=== PATIENT | male | born 1965 | race Caucasian/White ===

== ENCOUNTER 2017-10-25 13:13 | Observation (INO) ==
--- NOTE | 2017-10-25 13:20 | Emergency Department Note ---
Disposition Clinical Impression: Chest pain of uncertain etiology Disposition: Admitted As Inpatient Condition: Good Time of Disposition: 14:32 Chest Pain HPI - General Chief Complaint: ED Chest Pain Stated Complaint: chest pain Time Seen by Provider: 10/25/17 13:16 Vital Signs Reviewed: Yes Nursing Notes Reviewed: Yes - History of Present Illness HPI Narrative: Mr. Vigil, a 51yo male, presents from halfway where he was visiting family. Just prior to arrival, patient had acute onset sharp stabbing epigastric/subxyphoid pain associated with dyspnea, diaphoresis, nausea. He took his own nitro tablet x1 with complete resolution of his chest pain. He received 325 mg asa in route by EMS. Patient has prior MS with stent in 2012. These symptoms feel different in that, with his prior MS, he has left arm pain and left jaw pain. PMH: HTN, HLD, CAD s/p MS w/stent x1. Quit smoking 1 year ago; previous [id number]-[id number] history of smoking ROS: Pos: as above Neg: fever, chills, vomiting, changes in bowel or bladder, back pain. - Related Data Home Medications Medication Instructions Recorded Confirmed Aspirin Enteric Coated [Aspirin EC] 81 mg PO QAM 06/15/15 10/25/17 Atorvastatin [Lipitor] 80 mg PO QAM 06/15/15 10/25/17 Escitalopram [Lexapro] 10 mg PO QPM 06/15/15 10/25/17 Clopidogrel [Plavix] 75 mg PO DAILY 10/25/17 10/25/17 amLODIPine [Norvasc] 5 mg PO DAILY 10/25/17 10/25/17 Allergies Allergy/AdvReac Type Severity Reaction Status Date / Time Penicillins Allergy Swelling Verified 10/13/17 06:03 of Lip/Tongue/Throat cillins Allergy Severe Anaphylaxis Uncoded 10/13/17 06:03 All systems ED: reviewed and negative except as stated. Review of Systems: As Per HPI Chest Pain PMH - Past Medical History Medical history: Reports: hyperlipidemia, hypertension, kidney stones, myocardial infarction Surgical history: Reports: angioplasty/stent, orthopedic, other, other Psychiatric history: Reports: anxiety, depression - Social History Smoking Status: Former smoker Alcohol use: Reports: occasionally Drug use: Reports: none Physical Exam Vital Signs Reviewed General: Patient is alert, oriented, and in mild acute distress. He is no longer dyspneic or diaphoretic. HEENT: No facial asymmetry. Head is normocephalic and atraumatic. PERRLA, EOMI. oral mucosa moist. Trachea midline. Cardiovascular: Heart regular rate and rhythm without clicks, rubs, gallops, or murmurs. No JVD. PMI nondisplaced. Radial pulses 2/4 equal. No pedal edema. Respiratory: Symmetric chest rise with good respiratory effort. Bilateral breath sounds are clear without wheezing, crackles, or rhonchi. Abdomen: Bowel sounds present normoactive x-4 quadrants. Abdomen is soft, nondistended, and nontender. No organomegaly noted. Musculoskeletal: Spontaneously moving all extremities. Neuro: Alert and oriented 4.Sensation light touch intact. Skin: Warm, dry, intact. Psych: Patient's affect is appropriate for situation. Course Course Narrative: Primary concern at this time is cardiac in etiology of the patient's symptoms. His EKG is unremarkable. Initial troponin is below upper limit of normal however this is less than 4 hours since onset of symptoms. Chest x-ray is unremarkable. Patient is agreeable to admission for chest pain rule out ACS. Chest X-Ray 10/25/17 13:16 IMPRESSION: No acute cardiopulmonary disease. D/ / Iraj Zhou MD / Iraj Zhou MD Interpreting Provider: Iraj Zhou MD Vital Signs Temperature 98 F 10/25/17 13:15 Pulse Rate 58 10/25/17 13:15 Respiratory Rate 18 10/25/17 13:15 Blood Pressure 135/85 10/25/17 13:15 O2 Sat by Pulse Oximetry 100 10/25/17 13:15 Temperature 97.6 F 10/25/17 15:23 Pulse Rate 61 10/25/17 15:23 Respiratory Rate 18 10/25/17 15:23 Blood Pressure 134/78 10/25/17 15:23 O2 Sat by Pulse Oximetry 99 10/25/17 15:23 Oxygen Delivery Oxygen Delivery Nasal Cannula Chest Pain - Lab Data Result diagrams: 10/25/17 13:21 10/25/17 13:21 Lab Results 01/27/18 01/27/18 01/27/18 Range/Units 13:21 13:21 13:21 WBC 7.9 (4.3-11.1) K/mcL RBC 5.05 (4.19-5.50) M/mcL Hgb 15.6 (12.9-16.9) g/dL Hct 46.8 (37.5-50.1) % MCV 92.7 (83.0-100.0) fL MCH 30.9 (28.0-33.3) pg MCHC 33.3 (31.6-35.5) g/dL RDW 12.7 (11.5-14.5) % Plt Count 208 (140-400) K/mcL MPV 11.3 (9.4-12.4) fL Immature Gran % 0.3 (0-4) % Seg Neutrophils % 58.3 % Lymphocytes % 28.7 % Monocytes % 9.7 % Eosinophils % 2.5 % Basophils % 0.5 % Neutrophils # 4.6 (1.6-8.9) K/mcL Lymphocytes # 2.3 (0.6-4.6) K/mcL Monocytes # 0.8 (0.0-1.3) K/mcL Eosinophils # 0.2 (0.0-0.6) K/mcL Basophils # 0.0 (0.0-0.2) K/mcL PT 11.3 (9.4-12.1) Seconds INR 1.1 APTT 28.8 (26.0-36.0) Seconds Sodium 138 (136-145) mEq/L Potassium 3.9 (3.5-5.1) mEq/L Chloride 106 (98-107) mEq/L Carbon Dioxide 28 (23-29) mEq/L BUN 15 (6-20) mg/dL Creatinine 0.91 (0.70-1.30) mg/dL Est GFR ( Amer) > 60 (> 60) Est GFR (Non-Af Amer) > 60 (> 60) BUN/Creatinine Ratio 16 (6-26) Glucose 153 H (70-105) mg/dL Calculated Osmolality 290 (280-300) Calcium 9.1 (8.6-10.3) mg/dL Troponin I (< 0.04) ng/mL 10/25/17 Range/Units 13:21 WBC (4.3-11.1) K/mcL RBC (4.19-5.50) M/mcL Hgb (12.9-16.9) g/dL Hct (37.5-50.1) % MCV (83.0-100.0) fL MCH (28.0-33.3) pg MCHC (31.6-35.5) g/dL RDW (11.5-14.5) % Plt Count (140-400) K/mcL MPV (9.4-12.4) fL Immature Gran % (0-4) % Seg Neutrophils % % Lymphocytes % % Monocytes % % Eosinophils % % Basophils % % Neutrophils # (1.6-8.9) K/mcL Lymphocytes # (0.6-4.6) K/mcL Monocytes # (0.0-1.3) K/mcL Eosinophils # (0.0-0.6) K/mcL Basophils # (0.0-0.2) K/mcL PT (9.4-12.1) Seconds INR APTT (26.0-36.0) Seconds Sodium (136-145) mEq/L Potassium (3.5-5.1) mEq/L Chloride (98-107) mEq/L Carbon Dioxide (23-29) mEq/L BUN (6-20) mg/dL Creatinine (0.70-1.30) mg/dL Est GFR ( Amer) (> 60) Est GFR (Non-Af Amer) (> 60) BUN/Creatinine Ratio (6-26) Glucose (70-105) mg/dL Calculated Osmolality (280-300) Calcium (8.6-10.3) mg/dL Troponin I < 0.03 (< 0.04) ng/mL - EKG Data EKG attestation: Yes I reviewed and interpreted this EKG. EKG results narrative: EKG dated 25 Oct 2017 at 13:23 interpreted as sinus rhythm with a rate of 62. Normal intervals. Normal axis. Nonspecific ST T changes. No previous EKG for comparison. Heart Score - Score History: Highly Suspicious EKG: Non Specific repolarisation Disturbance Age: 45-65 Risk Factors: Equal/Greater than 3 risk factor or history of atherosclerotic disease Troponin: Less than normal limit HEART Score Total: 6 Critical Care Time Total Critical Care Time: 35 Attestation: Critical care time 35 minutes. Attestation Statement - Attestation Attestation: Patient was seen with resident physician. I reviewed the history, physical, assessment and plan, and agree with the findings. I also personally evaluated this patient and had [id number] time with this patient. 51-year-old male presents emergency Department acute onset of lower chest and midepigastric pain. Patient states the pain was sharp and dull. Was nonradiating. It was intense. He was visiting a family member in a halfway he became flushed diaphoretic and hypotensive. EMS was notified. Talking per EMS on arrival he was singer and ashen in appearance. He had a very low blood pressure. He had active chest pain. This resolved with aspirin and nitroglycerin. Patient was given IV fluids. He was brought to the emergency department. By the time we saw him he appeared well and was in no chest pain. On exam vital signs are stable. ENT unremarkable. Heart normal. Lungs normal. Abdomen soft nontender. Extremities normal. Neurologically intact without deficits. Skin no rashes. Chest wall is stable without tenderness. ED course patient has a history of MS. EKG shows no acute ischemic changes cardiac workup was otherwise negative. He remained pain-free. The concern those we could not entirely rule out cardiac cause for his pain. As a result we will admit him to the hospital service for further evaluation and treatment. Hospitalist was notified and agreed to accept patient for admission. Critical care time 35 minutes. Agree with resident physician assessment and plan.
[2017-10-25 13:30] LABS: Basophils % 0.5 %; Eosinophils # 0.2 K/mcL (0.0-0.6); Eosinophils % 2.5 %; Hematocrit 46.8 % (37.5-50.1); Hemoglobin 15.6 g/dL (12.9-16.9); Immature Granulocytes % 0.3 % (0-4); Lymphocytes # 2.3 K/mcL (0.6-4.6); Lymphocytes % 28.7 %; Mean Corpuscular HGB Conc 33.3 g/dL (31.6-35.5); Mean Corpuscular Hemoglobin 30.9 pg (28.0-33.3); Mean Corpuscular Volume 92.7 fL (83.0-100.0); Mean Platelet Volume 11.3 fL (9.4-12.4); Monocytes # 0.8 K/mcL (0.0-1.3); Monocytes % 9.7 %; Neutrophils # 4.6 K/mcL (1.6-8.9); Platelet Count 208 K/mcL (140-400); Red Blood Count 5.05 M/mcL (4.19-5.50); Red Cell Distribution Width 12.7 % (11.5-14.5); Segmented Neutrophils % 58.3 %
[2017-10-25 13:35] LABS: INR 1.1; Prothrombin Time 11.3 Seconds (9.4-12.1)
[2017-10-25 13:38] LABS: Activated Partial Thrombo Time 28.8 Seconds (26.0-36.0)
[2017-10-25 13:44] LABS: Calcium 9.1 mg/dL (8.6-10.3); Carbon Dioxide 28 mEq/L (23-29); Chloride 106 mEq/L (98-107); Potassium 3.9 mEq/L (3.5-5.1); Sodium 138 mEq/L (136-145)
[2017-10-25 13:50] LABS: BUN/Creatinine Ratio 16 (6-26); Blood Urea Nitrogen 15 mg/dL (6-20); Glucose 153 mg/dL (70-105); Osmolality,Calculated 290 (280-300); eGFR For African Americans > 60 (> 60); eGFR For Non-African Americans > 60 (> 60)
[2017-10-25] MEDS ORDERED: Naloxone 0.4 MG/ML INJ IVP PRN (15:31)
--- NOTE | 2017-10-25 15:31 | Internal Med History&Physical ---
Date of Encounter: 10/25/17 Time of Encounter: 15:30 Assessment and Plan (1) Chest pain Current visit: Yes Status: Acute r/o ACS Cycle troponins ECHO and Stress test am NPO from [place] Continue ASA, NTG SL Hemodynamically stable NO indication for cardio eval at this time Qualifiers: Chest pain type: unspecified Qualified Code(s): R07.9 - Chest pain, unspecified (2) Tobacco abuse Current visit: Yes Status: Chronic encourage cessation (3) Hypertension Current visit: Yes Status: Chronic continue home meds Qualifiers: Hypertension type: essential hypertension Qualified Code(s): I10 - Essential (primary) hypertension (4) History of DE (myocardial infarction) Current visit: Yes Status: Chronic conitnue plavix, ASA. Not on BB or ACEI (5) DVT prophylaxis Current visit: Yes Status: Acute SQ heparin Internal Medicine - H&P: HPI Chief complaint: Chest pain Admitted From: Home Plans for Post Hospital Care: Home History of present illness: Mr. Vigil is a 51 year old male with PMH of CAD s/p DE with Stents in the past , HTN, tobacco abuse He presents with sudden substernal chest pain said to have been 10/10 at onset, non-radiating, and associated with diaphoresis. He also reports associated shortness of breath and nausea with no vomiting, no l arm or jaw or neck pain. He denies cough, fever or chills, no leg swelling. When the chest pain started, patient states his blood pressure was said to have been 80/40 and his heart rate "low. He denies illicit durg use, he states compliance with his DaPT NO abdominal, neurologic, or genitourinary symptoms On presentation to the ER, he was in no form fo distress. Chest pain was relieved by ASA and Nitro Work up unremarkable. EKG done by EMS was NSR, EKG here also showed normal SR, with no ST segment or T wave changes He is asymptomatic at time of review He smokes half a pack of cigarettes daily No significant family hx Past Med Surg Social Fam HX - Past Medical History Medical history: hyperlipidemia, hypertension, kidney stones, myocardial infarction Psychiatric history: anxiety, depression - Past Surgical History Surgical History: angioplasty/stent, orthopedic, other, other - Social History Smoking Status: Former smoker Smokeless Tobacco Status: No Alcohol use: occasionally Drug use: none - Family History Mother Adopted: No Family Member Ethnicity: Non- Living Status: Hx Family Cardiac Disorders: Yes Hx Family Respiratory Disorders: Yes Hx Family Cancer: No Hx Family GI Disorders: No Hx Family Endocrine Disorder: Yes Hx Family Neuromuscular Disorders: No Hx Family Neurologic Disorders: No Hx Family HEENT Disorders: No Hx Family Autoimmune Disorders: No Internal Medicine - H&P: Meds Aspirin Enteric Coated [Aspirin EC] 81 mg PO QAM 06/15/15 [History] Atorvastatin [Lipitor] 80 mg PO QAM 06/15/15 [History] Escitalopram [Lexapro] 10 mg PO QPM 06/15/15 [History] Clopidogrel [Plavix] 75 mg PO DAILY 10/25/17 [History] amLODIPine [Norvasc] 5 mg PO DAILY 10/25/17 [History] 3 Allergy/AdvReac Type Severity Reaction Status Date / Time Penicillins Allergy Swelling Verified 10/13/17 06:03 of Lip/Tongue/Throat cillins Allergy Severe Anaphylaxis Uncoded 10/13/17 06:03 All Systems PM: A 10-system review of systems was performed and is negative for pertinent findings except as documented above in the HPI. - Constitutional Constitutional: as per HPI - EENT Eyes: as per HPI Ears: as per HPI Nose, mouth and throat: as per HPI - Cardiovascular Cardiovascular ROS IM: as per HPI - Respiratory Respiratory: as per HPI - Gastrointestinal Gastrointestinal: as per HPI - Musculoskeletal Musculoskeletal ROS IM: as per HPI - Integumentary Integumentary IM: as per HPI - Neurological Neurological ROS: as per HPI - Hematologic/Lymphatic Hematologic/Lymphatic: as per HPI - Constitutional Vitals: Temp Pulse Resp BP Pulse Ox 97.6 F 61 18 134/78 99 10/25/17 15:23 10/25/17 15:23 10/25/17 15:23 10/25/17 15:23 10/25/17 15:23 General appearance: Present: A&O X 3, pleasant, no acute distress - Head Head exam: Present: atraumatic, normocephalic - Eye Eye exam: Present: PERRL, conjuntiva pink, sclera anicteric Pupils: Present: PERRL - Neck Neck exam general surgery: Present: supple, trachea midline. Absent: lymphadenopathy - Respiratory Respiratory exam: Present: CTAB. Absent: accessory muscle use, rales, rhonchi, wheezes - Cardiovascular Cardiovascular exam: Present: RRR, +S1, +S2. Absent: diastolic murmur, gallop, rubs, systolic murmur - GI/Abdominal GI/Abdominal exam: Present: normal bowel sounds, soft, no peritoneal signs. Absent: distended, tenderness - Extremities Exam Extremities exam: Present: warm, radial pulses palpable and symmetrical. Absent : calf tenderness, cyanotic, pedal edema - Neurological Exam Neurological exam: Present: alert, CN II-XII intact, oriented X3, no focal deficits. Absent: pronater drift, facial droop, speech deficit - Skin Skin exam: Present: dry, intact Internal Med - H&P Results - Labs CBC & Chem 7: 10/25/17 13:21 10/25/17 13:21
[2017-10-25] MEDS: *HR* Heparin 5,000 UNIT/ML VIAL SQ SCH (21:17)
[2017-10-26 00:46] LABS: Basophils % 0.4 %; Eosinophils # 0.2 K/mcL (0.0-0.6); Eosinophils % 2.6 %; Hematocrit 45.4 % (37.5-50.1); Hemoglobin 15.3 g/dL (12.9-16.9); Immature Granulocytes % 0.2 % (0-4); Lymphocytes # 2.5 K/mcL (0.6-4.6); Lymphocytes % 30.3 %; Mean Corpuscular HGB Conc 33.7 g/dL (31.6-35.5); Mean Corpuscular Hemoglobin 31.2 pg (28.0-33.3); Mean Corpuscular Volume 92.5 fL (83.0-100.0); Mean Platelet Volume 11.5 fL (9.4-12.4); Monocytes # 0.7 K/mcL (0.0-1.3); Monocytes % 8.7 %; Neutrophils # 4.7 K/mcL (1.6-8.9); Platelet Count 207 K/mcL (140-400); Red Blood Count 4.91 M/mcL (4.19-5.50); Red Cell Distribution Width 12.7 % (11.5-14.5); Segmented Neutrophils % 57.8 %
[2017-10-26 01:01] LABS: BUN/Creatinine Ratio 13 (6-26); Blood Urea Nitrogen 11 mg/dL (6-20); Calcium 8.7 mg/dL (8.6-10.3); Carbon Dioxide 26 mEq/L (23-29); Chloride 110 mEq/L (98-107); Chol/HDL Ratio 3.8 (0-4.9); Cholesterol 117 mg/dL (< 200); Glucose 101 mg/dL (70-105); HDL Cholesterol 31 mg/dL (40-59); LDL Cholesterol,Calculated 68 mg/dL (0-99); Osmolality,Calculated 288 (280-300); Potassium 4.1 mEq/L (3.5-5.1); Sodium 139 mEq/L (136-145); Triglycerides 90 mg/dL (< 150); eGFR For African Americans > 60 (> 60); eGFR For Non-African Americans > 60 (> 60)
[2017-10-26] MEDS: *HR* Heparin 5,000 UNIT/ML VIAL SQ SCH ×3 (05:03→20:19)
[2017-10-26] MEDS: Aspirin Enteric Coated 81 MG Tablet PO SCH (09:29)
[2017-10-26] MEDS: amLODIPine 5 MG TABLET PO SCH (09:29)
--- NOTE | 2017-10-26 10:14 | Internal Med Progress Note ---
<MatthewChristopher - Last Filed: 10/26/17 11:31> Date of Encounter: 10/26/17 Time of Encounter: 10:12 - Assessment and plan (1) Chest pain Current Visit: Yes Status: Acute Assessment and plan: He did have 10/10 substernal chest pain at rest but relieved with Nitro Given that he did have previous CAD with stents within 5 years, will further evaluate with pharmacologic stress test tomorrow EKG, troponin, CXR negative; will await echocardiogram NPO at midnight Qualifiers: Chest pain type: unspecified Qualified Code(s): R07.9 - Chest pain, unspecified (2) CAD (coronary artery disease) Current Visit: Yes Status: Chronic Assessment and plan: Patient did report AL in 2013 with placement of stent in RCA Continue on ASA, Plavix, statin No BB in setting of bradycardia Qualifiers: Qualified Code(s): I25.10 - Atherosclerotic heart disease of [place] coronary artery without angina pectoris (3) Hypertension Current Visit: Yes Status: Chronic Assessment and plan: Blood pressures well controlled so far Will continue home [place] Qualifiers: Hypertension type: essential hypertension Qualified Code(s): I10 - Essential (primary) hypertension (4) Tobacco abuse Current Visit: Yes Status: Chronic Assessment and plan: Counseled smoking cessation (5) DVT prophylaxis Current Visit: Yes Status: Acute Assessment and plan: Heparin 5000 units TID - Subjective Interval history: PT seen and examined. He states he has remained chest pain free since getting the Nitro. Has no issues with breathing, nausea, vomiting, diarrhea or fevers. He confirmed that his chest pain was substernal and started suddenly, and felt different than his first heart attack where he had left arm and jaw pain. He did report lightheadedness but did not pass out or fall. - Constitutional Vitals: Temp Pulse Resp BP Pulse Ox 98.0 F 59 16 119/69 97 10/26/17 08:03 10/26/17 08:03 10/26/17 08:03 10/26/17 08:03 10/26/17 08:03 General appearance: Present: cooperative, pleasant, no acute distress, answers questions appropriately - Head Head exam: Present: atraumatic, normocephalic - Eye Eye exam: Present: PERRL, conjuntiva pink, sclera anicteric - Neck Neck exam general surgery: Present: supple, trachea midline. Absent: lymphadenopathy - Respiratory Respiratory exam: Present: CTAB. Absent: accessory muscle use, rales, rhonchi, wheezes - Cardiovascular Cardiovascular exam: Present: RRR, +S1, +S2. Absent: diastolic murmur, gallop, rubs, systolic murmur - GI/Abdominal GI/Abdominal exam: Present: normal bowel sounds, soft, no peritoneal signs. Absent: distended, tenderness - Extremities Exam Extremities exam: Present: warm, radial pulses palpable and symmetrical. Absent : calf tenderness, cyanotic, pedal edema - Neurological Exam Neurological exam: Present: alert, no focal deficits. Absent: facial droop, speech deficit - Skin Skin exam: Present: dry, intact Internal Medicine: Result - Labs CBC & Chem 7: 10/26/17 00:40 10/26/17 00:40 Labs: Short CBC 10/26/17 Range/Units 00:40 WBC 8.1 (4.3-11.1) K/mcL Hgb 15.3 (12.9-16.9) g/dL Hct 45.4 (37.5-50.1) % Plt Count 207 (140-400) K/mcL Neutrophils # 4.7 (1.6-8.9) K/mcL BMP 10/26/17 00:40 Sodium 139 Potassium 4.1 Chloride 110 H Carbon Dioxide 26 BUN 11 Creatinine 0.84 Glucose 101 Calcium 8.7 Cardiac Enzymes 10/25/17 10/26/17 Range/Units 19:19 00:40 Troponin I < 0.03 < 0.03 (< 0.04) ng/mL - ABG Interpretation ABG results: PT/INR, D-dimer PT 11.3 Seconds (9.4-12.1) 10/25/17 13:21 Consult Discharge Plan - Plan Referrals: Margarette Leonardo DO [Primary Care Provider] - <Jadon Roberts - Last Filed: 10/26/17 15:37> Date of Encounter: 10/26/17 - Constitutional Vitals: Temp Pulse Resp BP Pulse Ox 97.6 F 66 16 122/72 97 10/26/17 12:16 10/26/17 12:16 10/26/17 12:16 10/26/17 12:16 10/26/17 12:16 Internal Medicine: Result - Labs CBC & Chem 7: 10/26/17 00:40 10/26/17 00:40 Labs: Short CBC 10/26/17 Range/Units 00:40 WBC 8.1 (4.3-11.1) K/mcL Hgb 15.3 (12.9-16.9) g/dL Hct 45.4 (37.5-50.1) % Plt Count 207 (140-400) K/mcL Neutrophils # 4.7 (1.6-8.9) K/mcL BMP 10/26/17 00:40 Sodium 139 Potassium 4.1 Chloride 110 H Carbon Dioxide 26 BUN 11 Creatinine 0.84 Glucose 101 Calcium 8.7 Cardiac Enzymes 10/25/17 10/26/17 Range/Units 19:19 00:40 Troponin I < 0.03 < 0.03 (< 0.04) ng/mL - ABG Interpretation ABG results: PT/INR, D-dimer PT 11.3 Seconds (9.4-12.1) 10/25/17 13:21 - Attending Attestation I personally interviewed and examined this patient. I agree with the findings, assessment, and plan of Dr. Castro, internal medicine resident. This is a 51- year-old male with a known history of coronary artery disease status post stenting 2 years ago who comes in with chest pain evaluation. Troponins remained negative. Echocardiogram is pending. Stress test planned for the morning. He continues on aspirin, Plavix, statin. He is pain free presently. Goals remain stable and blood pressure is controlled. Patient was counseled on tobacco cessation.
[2017-10-27 04:36] LABS: Basophils % 0.4 %; Eosinophils # 0.2 K/mcL (0.0-0.6); Eosinophils % 2.6 %; Hematocrit 47.7 % (37.5-50.1); Hemoglobin 16.1 g/dL (12.9-16.9); Immature Granulocytes % 0.6 % (0-4); Lymphocytes # 2.4 K/mcL (0.6-4.6); Lymphocytes % 26.2 %; Mean Corpuscular HGB Conc 33.8 g/dL (31.6-35.5); Mean Corpuscular Hemoglobin 31.1 pg (28.0-33.3); Mean Corpuscular Volume 92.3 fL (83.0-100.0); Mean Platelet Volume 11.5 fL (9.4-12.4); Monocytes # 0.9 K/mcL (0.0-1.3); Monocytes % 10.1 %; Neutrophils # 5.4 K/mcL (1.6-8.9); Platelet Count 206 K/mcL (140-400); Red Blood Count 5.17 M/mcL (4.19-5.50); Red Cell Distribution Width 12.6 % (11.5-14.5); Segmented Neutrophils % 60.1 %
[2017-10-27] MEDS ORDERED: Regadenoson 0.4 MG/5 ML SYRINGE IVP ONE (06:43)
[2017-10-27 08:49] LABS: Blood Urea Nitrogen 13 mg/dL (6-20); Calcium 9.1 mg/dL (8.6-10.3); Carbon Dioxide 24 mEq/L (23-29); Chloride 108 mEq/L (98-107); Glucose 102 mg/dL (70-105); Osmolality,Calculated 286 (280-300); Potassium 3.8 mEq/L (3.5-5.1); Sodium 138 mEq/L (136-145)
[2017-10-27 09:21] LABS: BUN/Creatinine Ratio 16 (6-26); eGFR For African Americans > 60 (> 60); eGFR For Non-African Americans > 60 (> 60)
[2017-10-27] MEDS: Aspirin Enteric Coated 81 MG Tablet PO SCH (10:00)
[2017-10-27] MEDS: amLODIPine 5 MG TABLET PO SCH (10:00)
[2017-10-27 12:16] VITALS: BP 103/65
--- NOTE | 2017-10-27 14:21 | Discharge Summary ---
Date of Encounter: 10/27/17 Time of Encounter: 09:45 - Discharge Diagnosis (1) Hypertension Priority: Secondary Status: Chronic Qualifiers: Hypertension type: essential hypertension Qualified Code(s): I10 - Essential (primary) hypertension (2) Chest pain Priority: Primary Status: Acute Qualifiers: Chest pain type: unspecified Qualified Code(s): R07.9 - Chest pain, unspecified (3) Tobacco abuse Priority: Secondary Status: Chronic (4) CAD (coronary artery disease) Priority: Secondary Status: Chronic Qualifiers: Coronary Disease-Associated Artery/Lesion type: [place] artery [place] vs. transplanted heart: [place] heart Associated angina: without angina Qualified Code(s): I25.10 - Atherosclerotic heart disease of [place] coronary artery without angina pectoris - Discharge Medications Home Medications: Aspirin Enteric Coated [Aspirin EC] 81 mg PO QAM 06/15/15 [History] Atorvastatin [Lipitor] 80 mg PO QAM 06/15/15 [History] Escitalopram [Lexapro] 10 mg PO QPM 06/15/15 [History] Clopidogrel [Plavix] 75 mg PO DAILY 10/25/17 [History] amLODIPine [Norvasc] 5 mg PO DAILY 10/25/17 [History] Allergies/Adverse Reactions: 3 Allergy/AdvReac Type Severity Reaction Status Date / Time Penicillins Allergy Swelling Verified 10/13/17 06:03 of Lip/Tongue/Throat cillins Allergy Severe Anaphylaxis Uncoded 10/13/17 06:03 Procedures/tests Complete & Pending: Procedures Performed prior 72 hours Category Date Time Status NM fabby perf SPECT multi [NM] Routine Exams 10/25/17 15:33 Taken EV echocardiogram Routine Y 10/26/17 11:30 Completed SP exercise nuclear stress Routine Y 10/27/17 07:55 Completed Date of admission: 10/25/17 14:48 Primary care physician: Margarette Leonardo DO Discharging clinician: Xiomara Pinzon Anticipated date of discharge: 10/27/17 - Patient Status Disposition: Home, Self-Care Condition: Good Functional capacity at discharge: independent ambulation Overall status at discharge: patient is progressing back to baseline - Discharge Instructions Instructions: Chest Pain (DC), Chronic Hypertension (DC) Follow Up With: [facility] [Provider Group] (office will call you with an appointment date and time) Margarette Leonardo DO [Primary Care Provider] - 10/31/17 3:00 pm Additional Instructions: F/up with PCP in 1-2 weeks F/up with [facility] in 2-3 weeks - Diet and Activity Activity: resume usual activities as tolerated Diet: low fat, low cholesterol, low salt diet Hospital course: Mr. Vigil is a 51 year old male with the above medical problems, who was admitted with left-sided chest pain associated with dizziness. Initial labs, EKG and chest XRay showed no acute abnormality. Serial Troponis and Telemetry monitoring were normal. Echocardiogram showed preserved EF with no gross abnormalities. He underwent nuclear stress testing which was negative for ischemia or infarct but reportedly showed multiple PVCs. Patient has been on , Plavix and statin at home but no beta yasmin due to bradycadia. He is an active smoker and smoking cessation counseling has been done for 4 min and he verbalized understanding, was motivated to quit smoking. He is medically stable for discharge with outpatient f/up. - Time Spent with Patient Total time spent providing and/or coordinating discharge services: Greater than 30 minutes (40 min) - Constitutional Vitals: Temp Pulse Resp BP Pulse Ox 97.8 F 60 16 103/65 96 10/27/17 12:15 10/27/17 12:15 10/27/17 12:15 10/27/17 12:15 10/27/17 12:15 General appearance: Present: cooperative, A&O X 3, answers questions appropriately - Cardiovascular Cardiovascular exam: Present: RRR, +S1, +S2. Absent: diastolic murmur, gallop, rubs, systolic murmur
[2017-10-28] MEDS ORDERED: *HR* Enoxaparin 40 MG/0.4 ML SYRINGE SQ SCH (06:00)
--- NOTE | 2017-10-28 17:07 | Electrocardiograph Report ---
[place] [id number] Test Date: 2017-10-25 Pat Name: Yaw Vigil Department: 103 Room: 2A Gender: Front Desk Person: : 1965 Requested By: Gurmeet Connelly Order Number: [id number] Reading MD: Jan Curran Measurements Intervals [place] Rate: 62 P: 72 AR: 154 QRS: 64 QRSD: 100 T: 50 QT: 403 QTc: 408 Interpretive Statements SINUS RHYTHM Electronically Signed On 10-28-2017 17:05:32 EST by Jan Curran
== END 2017-10-27 15:15 | disposition home or self-care (01) ==
LOC: EMEROO 13:13 → 2ANU 13:13 → SUATTDRO 14:48 → 2ANU 15:20
PROVIDERS: ADMIT Internal Medicine; ATTEND Internal Medicine